=== PATIENT | female | born 1995 | race Caucasian/White ===

== ENCOUNTER 2019-07-06 07:18 | Inpatient (IN) ==
[2019-07-06] MEDS ORDERED: NARCAN IV ONE ×2 (07:34→10:11)
[2019-07-06] MEDS ORDERED: NS 1,000 ML IV ONE ×2 (07:52→09:59)
[2019-07-06] MEDS ORDERED: ZOFRAN IV ONE ×2 (07:52→10:02)
[2019-07-06 08:13] LABS: BASO# 0.01 X1000 (0.0-0.2); BASO% 0.1 % (0.0-0.8); EOS# 0.01 X1000 (0.0-0.7); EOS% 0.1 % (0.0-10.0); HEMATOCRIT 40.4 % (37.0-47.0); HEMOGLOBIN 13.1 g/dL (12.0-16.0); IMM GRAN# 0.15 X1000 (0.0-0.04); IMM GRAN% 0.8 % (0.0-0.5); LYMPH# 1.09 X1000 (1.2-3.4); MCH 30.3 PG (27-31); MCHC 32.4 g/dL (33-37); MCV 93.3 FL (81-99); MONO# 2.77 X1000 (0.11-0.59); MONO% 15.4 % (1.7-9.3); MPV 9.4 FL (7.4-10.4); NEUT# 14.01 X1000 (1.4-6.5); NEUT% 77.6 % (42.2-75.2); PLT 378 X1000 (130-400); RBC 4.33 XMIL (4.2-5.4); RDW 12.5 % (11.5-14.5); WBC 18.04 X1000 (4.8-10.8)
[2019-07-06 08:27] LABS: ALB/GLOB RATIO 1.7; ALBUMIN 4.9 g/dL (3.5-5.0); CALCIUM 8.9 mg/dL (8.8-10.2); CREATININE 1.3 mg/dL (0.5-0.9); POTASSIUM 4.4 mmol/L (3.5-5.1); TOTAL BILIRUBIN 0.29 mg/dL (0.20-1.00); TOTAL PROTEIN 7.8 g/dL (6.3-8.3)
--- NOTE | 2019-07-06 08:28 | Diag Imaging Result Doc PS360 ---
EXAM: CT HEAD W/O CONTRAST HISTORY: hearing loss after Heroin use TECHNIQUE: CT head without contrast COMPARISON: None. FINDINGS: No parenchymal hemorrhage. No epidural or subdural hematoma. No subarachnoid hemorrhage. No mass identified on this noncontrasted exam. No hydrocephalus. No sinus opacification. IMPRESSION: No hemorrhage. Negative brain CT without contrast. This exam was performed using automated exposure control, adjustment of mA or kV according to patient size, and/or use of iterative reconstruction technique. Electronically signed by Nathan Ureña 07/06/2019 8:26 AM
[2019-07-06 09:04] LABS: UR AMPHETAMINES QUAL NONE DETECTED (NONE DETECT); UR BARBITUATES QUAL NONE DETECTED (NONE DETECT); UR BENZODIAZEPIN QUAL NONE DETECTED (NONE DETECT); UR CANNABINOIDS QUAL NONE DETECTED (NONE DETECT); UR COCAINE QUAL NONE DETECTED (NONE DETECT); UR METHADONE QUAL NONE DETECTED (NONE DETECT); UR OPIATES QUAL PRESUMPTIVE POSITIVE (NONE DETECT); UR OXYCODONE QUAL NONE DETECTED (NONE DETECT); UR PCP QUAL NONE DETECTED (NONE DETECT)
--- NOTE | 2019-07-06 09:23 | Diag Imaging Result Doc PS360 ---
EXAM: CHEST-1 VIEW HISTORY: leukocytosis, fever TECHNIQUE: Chest single view COMPARISON: None. FINDINGS: The lungs are well expanded. The heart is not enlarged. The vessels are not distended. There are mild increased markings in the left base behind the heart. No effusion identified. IMPRESSION: Small left basilar infiltrate. Electronically signed by Nathan Ureña 07/06/2019 9:20 AM
[2019-07-06] MEDS ORDERED: VANCOMYCIN 1 GM/NS 1 GM/250 ML IVPB IV ONE (09:25)
[2019-07-06] MEDS ORDERED: ZOSYN 3.375 GM in NS 50 ML IV ONE (09:25)
[2019-07-06] MEDS ORDERED: SOLU-MEDROL IV ONE (10:13)
--- NOTE | 2019-07-06 10:20 | PROVIDER DOCUMENTATION ---
This chart was entered by Missy Trevino Scribe, acting as scribe for Jefferson Somers MD. VOB-[id number]-ZGCP Abuse/Overdose - General Chief Complaint: Intoxicated Stated Complaint: POSSIBLE OD Time Seen by Provider: 07/06/19 07:24 Source: patient, EMS Allergies/Adverse Reactions: Allergies Allergy/AdvReac Type Severity Reaction Status Date / Time No Known Allergies Allergy Verified 07/06/19 07:32 Home Medications: Home Medication List Medication Instructions Recorded Confirmed Last Taken Type NK [No Home Medications] 09/13/17 07/06/19 Unknown History - History of Present Illness-Drug/Alcohol Nature of Presenting Problem: 23yof presents to ED by EMS cc drug overdose. EMS reports family told them they last saw pt at 12am and she was fine but at 6am found her unresponsive, barely breathing. EMS reports when they got to pt home it looked as if she had been using Heroin, they did not give Narcan in route b/c pt was A&Ox3. Upon exam in ED pt is A&oX3, denies injury but does report hearing loss and pt temp is 93. Pt has hx of drug use but states being clean for 1yr prior to today. This episode of drinking or use began:: unsure Severity: reports: severe Psychiatric Complaints: reports: denies symptoms Associated Symptoms: reports: EENT symptoms (trouble hearing) Any injuries associated with this episode of intoxication?: No Similar Symptoms Previously?: Yes Recently seen or treated by another doctor?: No Review of Systems - Adult - REVIEW OF SYSTEMS - ADULT Constitutional: reports: see HPI, other (drug overdose). denies: chills, fever, fatique Eyes: reports: no symptoms reported Ears, Nose, Mouth & Throat: reports: see HPI, hearing loss Cardiovascular: reports: no symptoms reported Respiratory: reports: no symptoms reported Gastrointestinal: reports: no symptoms reported Genitourinary: reports: no symptoms reported Musculoskeletal: reports: no symptoms reported Integumentary: reports: no symptoms reported Neurological: reports: no symptoms reported Psychiatric: reports: no symptoms reported Endocrine: reports: no symptoms reported Hematologic/Lymphatic: reports: no symptoms reported Allergic/Immunologic: reports: no symptoms reported All Other Systems: Reviewed and Negative Past History - Adult - PAST MEDICAL HISTORY-ADULT Review of Records: reports: Nursing Assessment Review, Medications Reviewed, Social history reviewed & non-contributory. Major Childhood Illnesses: reports: denies history Cardiovascular: reports: denies history Respiratory: reports: denies history Gastrointestinal: reports: denies history Obstetrical/Gynecological: reports: denies history Genitourinary: reports: denies history Musculoskeletal: reports: denies history Neurological: reports: denies history Endocrine/Immune: reports: denies history Other Conditions: reports: denies history - PRIOR SURGERIES/PROCEDURES Surgical/Procedure History: reports: none - IMMUNIZATION STATUS Childhood Immunizations: See Nurse Assessment Flu Vaccine: See Nurse Assessment - FAMILY HISTORY Family History: reviewed, not pertinent - SOCIAL HISTORY Smoking: cigarettes, less than 1 pack/day Provider spent 3-5 mins advising pt. on dangers of tobacco.: Discussed manners to quit use, and f/u contacts for add'l counseling. Physical Exam-General - PHYSICAL EXAM-ADULT Initial Vital Signs Reviewed: Yes - CONSTITUTIONAL General Appearance: alert. negative: anxious, combative - EYES Eyes: PERRL/EOMI, pink conjunctivae. negative: photophobia - HEAD, EARS, NOSE, MOUTH & THROAT HENMT: normocephalic/atraumatic, moist mucous membranes, hearing deficit. negative: angioedema - NECK Neck: normal inspection - RESPIRATORY Respiratory: chest non-tender, lungs clear, normal breath sounds. negative: wheezing - CARDIOVASCULAR Cardiovascular: normal peripheral pulses, no edema, tachycardia. negative: regular rate, rhythm, bradycardia - GASTROINTESTINAL (ABDOMEN) Abdominal Exam: normal bowel sounds, non tender, soft. negative: rebound - MUSCULOSKELETAL Back Exam: normal inspection, no CVA tenderness, no vertebral tenderness Extremity: normal inspection, normal capillary refill. negative: deformity - SKIN Integumentary: normal color. negative: diaphoresis, jaundice - PSYCHIATRIC Psych/Mental Status: oriented x 3. negative: anxious, disheveled Progress - PLAN OF CARE/RESULTS Progress/Plan/Lab Results: Vital Signs - 8 hr 07/06/19 07:31 07/06/19 07:38 07/06/19 07:45 Temperature Pulse Rate 112 H 110 H 114 H Respiratory Rate 8 L 10 L 11 L Blood Pressure 112/74 O2 Sat by Pulse Oximetry 99 97 95 07/06/19 08:00 07/06/19 08:04 07/06/19 08:23 Temperature Pulse Rate 116 H 121 H 112 H Respiratory Rate 10 L 13 10 L Blood Pressure 115/83 O2 Sat by Pulse Oximetry 96 98 100 07/06/19 08:25 07/06/19 08:30 07/06/19 08:31 Temperature 93.9 F L Pulse Rate 111 H 112 H Respiratory Rate 14 12 Blood Pressure 92/62 O2 Sat by Pulse Oximetry 98 98 07/06/19 08:45 07/06/19 09:00 07/06/19 09:01 Temperature Pulse Rate 112 H 120 H 108 H Respiratory Rate 7 L 9 L 10 L Blood Pressure 85/63 O2 Sat by Pulse Oximetry 97 96 94 L 07/06/19 09:15 07/06/19 09:30 07/06/19 09:31 Temperature Pulse Rate 108 H 111 H 110 H Respiratory Rate 12 17 21 Blood Pressure 81/62 O2 Sat by Pulse Oximetry 94 L 95 07/06/19 09:45 07/06/19 10:00 07/06/19 10:15 Temperature 97.5 F L Pulse Rate 106 H 106 H 108 H Respiratory Rate 9 L 12 16 Blood Pressure 90/50 O2 Sat by Pulse Oximetry 95 97 07/06/19 10:21 07/06/19 10:30 07/06/19 10:31 Temperature Pulse Rate 112 H 116 H 111 H Respiratory Rate 12 13 14 Blood Pressure 86/61 90/63 O2 Sat by Pulse Oximetry 98 99 98 07/06/19 10:45 07/06/19 11:00 07/06/19 11:01 Temperature Pulse Rate 106 H 101 H 103 H Respiratory Rate 13 12 14 Blood Pressure 94/65 O2 Sat by Pulse Oximetry 100 100 100 07/06/19 11:15 07/06/19 11:30 07/06/19 11:31 Temperature Pulse Rate 103 H 105 H 100 H Respiratory Rate 13 12 11 L Blood Pressure 101/58 O2 Sat by Pulse Oximetry 100 100 99 07/06/19 11:45 07/06/19 12:06 Temperature 97.7 F Pulse Rate 100 H Respiratory Rate 11 L Blood Pressure O2 Sat by Pulse Oximetry 100 Bedside Urine ED: Urine Bedside Start: 07/06/19 07:24 Freq: ORDERED Status: Active Protocol: Activity Type Activity Date Activity User E-Sign Co-Sign Detail Recorded Client Recorded Date Recorded By Document 07/06/19 08:08 [id number] 07/06/19 08:08 [id number] 07/06/19 08:08 Point of Care [Bedside Point of Care] -Lot # [id number] - Results Negative -Control Line Visible? Yes Laboratory Results - last 24 hr 07/06/19 07/06/19 07/06/19 07:45 07:45 07:45 WBC 18.04 H RBC 4.33 Hgb 13.1 Hct 40.4 MCV 93.3 MCH 30.3 MCHC 32.4 L RDW Std Deviation 12.5 Plt Count 378 MPV 9.4 Immature Gran % (Auto) 0.8 H Neut % (Auto) 77.6 H Lymph % (Auto) 6.0 L Stanton % (Auto) 15.4 H Eos % (Auto) 0.1 Baso % (Auto) 0.1 Immature Gran # (Auto) 0.15 H Neut # (Auto) 14.01 H Lymph # (Auto) 1.09 L Stanton # (Auto) 2.77 H Eos # (Auto) 0.01 Baso # (Auto) 0.01 PT INR PTT (Actin FS) Sodium 139 Potassium 4.4 Chloride 96 L Carbon Dioxide 23 L Anion Gap 20 BUN 16 Creatinine 1.3 H Estimated GFR/1.73 m2 50 BUN/Creatinine Ratio 12 Glucose 105 H POC Glucose Calculated Osmolality 279 Calcium 8.9 Total Bilirubin 0.29 AST 48 H ALT 40 H Alkaline Phosphatase 63 Creatine Kinase 719 H Creatine Kinase Index 3.2 H CK-MB (CK-2) 22.98 H Troponin T Total Protein 7.8 Albumin 4.9 Globulin 2.9 Albumin/Globulin Ratio 1.7 Plasma Lactate Urine Opiates Screen Ur Oxycodone Screen Ur Methadone, Qual Ur Barbiturates Screen Ur Phencyclidine Scrn Ur Amphetamines Screen U Benzodiazepines Scrn Urine Cocaine Screen U Cannabinoids Screen 07/06/19 07/06/19 07/06/19 07:45 07:45 07:53 WBC RBC Hgb Hct MCV MCH MCHC RDW Std Deviation Plt Count MPV Immature Gran % (Auto) Neut % (Auto) Lymph % (Auto) Stanton % (Auto) Eos % (Auto) Baso % (Auto) Immature Gran # (Auto) Neut # (Auto) Lymph # (Auto) Stanton # (Auto) Eos # (Auto) Baso # (Auto) PT 13.6 INR 1.03 PTT (Actin FS) 31.5 Sodium Potassium Chloride Carbon Dioxide Anion Gap BUN Creatinine Estimated GFR/1.73 m2 BUN/Creatinine Ratio Glucose POC Glucose 85 Calculated Osmolality Calcium Total Bilirubin AST ALT Alkaline Phosphatase Creatine Kinase Creatine Kinase Index CK-MB (CK-2) Troponin T 0.057 Total Protein Albumin Globulin Albumin/Globulin Ratio Plasma Lactate Urine Opiates Screen Ur Oxycodone Screen Ur Methadone, Qual Ur Barbiturates Screen Ur Phencyclidine Scrn Ur Amphetamines Screen U Benzodiazepines Scrn Urine Cocaine Screen U Cannabinoids Screen 07/06/19 07/06/19 07/06/19 08:02 09:45 12:00 WBC RBC Hgb Hct MCV MCH MCHC RDW Std Deviation Plt Count MPV Immature Gran % (Auto) Neut % (Auto) Lymph % (Auto) Stanton % (Auto) Eos % (Auto) Baso % (Auto) Immature Gran # (Auto) Neut # (Auto) Lymph # (Auto) Stanton # (Auto) Eos # (Auto) Baso # (Auto) PT INR PTT (Actin FS) Sodium Potassium Chloride Carbon Dioxide Anion Gap BUN Creatinine Estimated GFR/1.73 m2 BUN/Creatinine Ratio Glucose POC Glucose 72 Calculated Osmolality Calcium Total Bilirubin AST ALT Alkaline Phosphatase Creatine Kinase Creatine Kinase Index CK-MB (CK-2) Troponin T Total Protein Albumin Globulin Albumin/Globulin Ratio Plasma Lactate 2.3 H Urine Opiates Screen PRESUMPTIVE POSITIVE A Ur Oxycodone Screen NONE DETECTED Ur Methadone, Qual NONE DETECTED Ur Barbiturates Screen NONE DETECTED Ur Phencyclidine Scrn NONE DETECTED Ur Amphetamines Screen NONE DETECTED U Benzodiazepines Scrn NONE DETECTED Urine Cocaine Screen NONE DETECTED U Cannabinoids Screen NONE DETECTED Orders Category Date Time Status Admit - [facility] Routine [id number] 07/06/19 12:18 Active Activity - Bed Rest with BRP ORDERED Care 07/06/19 12:18 Active Cardiac Monitoring DIRECTED Care 07/06/19 11:33 Active ED: Urine Bedside ORDERED Care 07/06/19 07:24 Active FSBS [Finger Stick Blood Sugar (ED)] DIRECTED Care 07/06/19 07:52 Completed IV Insertion ORDERED Care 07/06/19 11:33 Completed Intake and Output-Strict ORDERED Care 07/06/19 12:18 Active Notify MD of + Sepsis Screen NOW Care 07/06/19 11:33 Active Nursing- MD Consult Request ROUTINE Care 07/06/19 12:22 Active Nursing- Obtain EKG ONCE Care 07/06/19 07:24 Active Vital Signs Order Q1H Care 07/06/19 12:18 Active Z-Document. for Tele Applied ORDERED Care 07/06/19 12:19 Active Physician/Provider Consults Routine Cons 07/06/19 12:18 Ordered Regular Diet Diet 07/06/19 09:[address] HEAD W/O CONTRAST [CT] Stat Exams 07/06/19 07:35 Completed cxr [CHEST-1 VIEW] [RAD] Stat Exams 07/06/19 08:43 Completed BLOOD CULTURE [BLDCUL] Stat Lab 07/06/19 09:56 Results CBC WITH DIFF [HEME] Routine Lab 07/07/19 06:00 Ordered CBC WITH ELECTRONIC DIFF [HEME] Stat Lab 07/06/19 07:45 Completed CK PROFILE [SP CHEM] Routine Lab 07/07/19 06:00 Ordered CK PROFILE [SP CHEM] Stat Lab 07/06/19 07:45 Completed CK TOTAL [CHEM] Stat Lab 07/06/19 13:21 Ordered COMPREHENSIVE METABOLIC PANEL [CHEM] Routine Lab 07/07/19 06:00 Ordered COMPREHENSIVE METABOLIC PANEL [CHEM] Stat Lab 07/06/19 07:45 Completed LACTATE, PLASMA [CHEM] Lab 07/06/19 13:21 Ordered LACTATE, PLASMA [CHEM] Lab 07/06/19 15:30 Uncollected LACTATE, PLASMA [CHEM] Stat Lab 07/06/19 09:45 Completed PROTIME WITH INR [COAG] Stat Lab 07/06/19 07:45 Completed PTT [COAG] Stat Lab 07/06/19 07:45 Completed RENAL PROFILE [CHEM] Stat Lab 07/06/19 13:21 Ordered SPUTUM CULTURE WITH GRAM STAIN [RM] Routine Lab 07/06/19 12:21 Uncollected TROPONIN T Stat Lab 07/06/19 07:45 Completed URINE DRUG SCREEN Stat Lab 07/06/19 08:02 Completed 0.9% Sodium Chloride Inj [Ns] 1,000 ml Med 07/06/19 12:30 Active IV 100 mls/hr 0.9% Sodium Chloride Inj [Ns] 1,000 ml Med 07/06/19 07:52 Discontinued IV 999 mls/hr 0.9% Sodium Chloride Inj [Ns] 1,000 ml Med 07/06/19 09:59 Discontinued IV 999 mls/hr Linezolid 600 mg/D5w [Zyvox 600 mg/D5w] Med 07/06/19 12:30 Active 600 mg in 300 ml IV Q12H Methylprednisolone Sod Succ [Solu-Medrol] Med 07/06/19 10:13 Discontinued 125 mg IV NOW ONE Methylprednisolone Sod Succ [Solu-Medrol] Med 07/06/19 21:00 Active 40 mg IV Q12H Naloxone [Narcan] Med 07/06/19 07:34 Discontinued 0.4 mg IV NOW ONE Naloxone [Narcan] Med 07/06/19 10:11 Discontinued 0.4 mg IV NOW ONE Ondansetron [Zofran] Med 07/06/19 07:52 Discontinued 4 mg IV NOW ONE Ondansetron [Zofran] Med 07/06/19 10:02 Discontinued 4 mg IV NOW ONE Ondansetron [Zofran] Med 07/06/19 12:18 Active 4 mg IV Q4H PRN PRN Pantoprazole [Protonix] Med 07/06/19 12:30 Active 40 mg IV Q24H Piperacillin/Tazobactam [Zosyn] 3.375 gm Med 07/06/19 09:25 Discontinued 0.9% Sodium Chloride Inj [Ns] 50 ml IV NOW Piperacillin/Tazobactam [Zosyn] 3.375 gm Med 07/06/19 16:00 Active 0.9% Sodium Chloride Inj [Ns] 50 ml IV Q6H Sodium Chloride 0.9% Med 07/06/19 12:30 Active 10 ml INJ DIRECTED Vancomycin 1 gm/Ns Med 07/06/19 09:25 Discontinued 1 gm in 250 ml IV NOW Oxygen Device Stat Oth 07/06/19 11:33 Completed Telemetry [OM.EQ] Routine Oth 07/06/19 12:18 Active EKG [EKG] Stat Ther 07/06/19 07:24 Draft Transfer/Admit Order [TRANSFER] Routine Transfer 07/06/19 12:26 Ordered Result Diagrams: 07/06/19 07:45 07/06/19 07:45 - REASSESSMENT Reassessment #1 Time Reassessed: 09:45 Status: improving (hearing is improving after Narcan and pt is now c/o left shoulder pain) - EKG 1 Time of EKG reading by physician:: 07:41 EKG Read and Signed by:: Jefferson Somers EKG Interpretation (*Must complete 3 of following elements*): Abnormal (indeterminate axis;) Rate: 111 Rhythm: Sinus Tachy QRS: other (Abnormal, consider primary T wave abnormality) [place] Interval: normal 2 Time of EKG reading by physician:: 13:42 EKG Read and Signed by:: Jefferson Somers EKG Interpretation (*Must complete 3 of following elements*): Normal Rate: 94 Rhythm: NSR QRS: normal ST Wave: normal Prior EKG Comparison: changes noted - XRAY 1 XRAY: Bilateral XRAY Study: Chest Impression: See EMR Report ( IMPRESSION: Small left basilar infiltrate. Electronically signed by Nathan Ureña 07/06/2019 9:20 AM) - CT/MRI 1 CT Study: Head Impression: See EMR Report (IMPRESSION: No hemorrhage. Negative brain CT without contrast. This exam was performed using automated exposure control, adjustment of mA or kV according to patient size, and/or use of iterative reconstruction technique. Electronically signed by Nathan Ureña 07/06/2019 8:26 AM) - CONSULTS/PCP/HOSPITALIST Notification #1 *Consult/PCP/Hospitalist*: Saar MARX for hospitalist Time Discussed: 10:00 Consult Disposition: Will see in ED, Admit #2 Consult: Dr Quintero for ENT Time Discussed: 11:34 Consult Disposition: other (Advised to keep pt at [facility] and will follow.) Departure - Departure Date of Disposition Decision: 07/06/19 Time of Disposition Decision: 10:06 DIAGNOSIS: Heroin overdose, Sensorineural hearing loss, bilateral, Aspiration pneumonia, Renal insufficiency, Sepsis Disposition: ADMITTED INPATIENT 09 Certified Medical Emergency: Emergent Condition: Fair Additional Instructions: ED Follow Up Instructions: You have been treated by a care provider in the Emergency Department. These instructions are being provided to you so you can have an understanding of how to care for yourself upon discharge. Upon discharge from the Emergency Department, you are responsible for making arrangements for follow-up care by a physician of your choice. Take all prescribed medications as directed. Return to the Emergency Department immediately for any new or worsening symptoms. You may call the Physician Referral phone number at [phone] to obtain a list of Physicians who are taking new patients. Referrals and Follow-Ups: None,PCP [Primary Care Provider] - Discharge Education: Steps to Quit Smoking, [id number] - Critical Care Note This patient required my direct & personal management of CC.: Yes Total Time (mins): 60 Critical Care Statement: This patient required my direct personal management to treat or rule out processes, the absence of which, could potentiallly result in sudden, clinically significant life or limb threatening deterioration. Attestation - Physician/ TIRSO Attestation Patient care was provided by Advanced Practice Provider:: No The physician spent face to face time with patient:: Yes Advanced Practice Provider documentation review:: Supervising physician onsite and consulted in the evaluation and care of this patient. The physician did have a face to face encounter with the patient. Sepsis: Tissue Perfusion Assmt - Physical Exam Assessment Date: 07/06/19 Time Assessment Initialized: 10:46 Vital Signs: Last Vital Signs Temp 97.7 F 07/06/19 12:06 Pulse 100 H 07/06/19 11:45 Resp 11 L 07/06/19 11:45 BP 101/58 07/06/19 11:31 Pulse Ox 100 07/06/19 11:45 Height 5 ft 4 in Weight 145 lb 07/06/19 10:46 see chart Lung Sounds:: lungs clear Heart Sounds:: Regular Capillary Refill Time: Less Than 2 Seconds Peripheral Pulse Evaluation:: radial (R): 4+, radial (L): 4+, dorsalis-pedis (R): 4+, dorsalis-pedis (L): 4+ Skin Exam:: flushed, turgor good - Impression Impression:: Tissue Perfusion Adequate - Plan Plan:: See Orders This chart was documented by the indicated scribe, (Missy Trevino Scribe) and accurately reflects the services I performed and decisions made by me, Jefferson Somers MD, as attested by the provider's signature.
--- NOTE | 2019-07-06 11:31 | EKG Report ---
Test Performed on : 07/06/2019 07:41:50 AM Test Reason : ams Blood Pressure : / mmHG Vent. Rate : 111 BPM Atrial Rate : 111 BPM P-R Int : 124 ms QRS Dur : 072 ms QT Int : 324 ms P-R-T Axes : 000 106 -24 degrees QTc Int : 440 ms Sinus tachycardia. Indeterminate axis Abnormal QRS-T angle, consider primary T wave abnormality Abnormal ECG No previous ECGs available Unconfirmed Result
[2019-07-06 12:12] LABS: INR 1.03; PROTIME 13.6 Seconds (11.0-16.0)
[2019-07-06 12:13] LABS: PTT 31.5 Seconds (22.3-41.8)
[2019-07-06] MEDS ORDERED: ZOFRAN IV PRN (12:18)
[2019-07-06 12:36] LABS: CK INDEX 3.2 (0.0-2.5); CK-MB 22.98 ng/mL (0.0-5.0)
--- NOTE | 2019-07-06 13:05 | HISTORY AND PHYSICAL ---
CHIEF COMPLAINT: Heroin overdose. HISTORY OF PRESENT ILLNESS: This is a 23-year-old female with a prior history of IV heroin use, who reportedly per the family has been clean for 1 year. They stated that she had been acting fine and had been in her normal state of health and she went to bed about midnight. The parents state they last saw her at midnight. At 6 o'clock this morning, they found her unresponsive, barely breathing. EMS was called. On arrival to the emergency room, she was awake. She would doze off to sleep when left alone. She complained of not being able to hear out of either ear. She was given Narcan 0.4 on arrival at 7:35 and this was repeated at 10 o'clock. She has required none since. The parents are unaware of her using heroin prior to this episode during this last year. PAST MEDICAL HISTORY: Denies. PAST SURGICAL HISTORY: Denies. SOCIAL HISTORY: She smokes about 1 pack a day. She does use heroin. She denies any alcohol or other illicit drug use. ALLERGIES: No known drug allergies. HOME MEDICATIONS: None. REVIEW OF SYSTEMS: Discussed with the patient with pertinent positives stated in the HPI. She denied any syncope, dizziness, any chest pain, palpitations, any cough, fevers or chills, night sweats, any diarrhea, constipation, black or bloody vomitus or stools, any hematuria, dysuria, frequency, urgency. PHYSICAL EXAMINATION: GENERAL: This is a 23-year-old female who is sitting up on the stretcher in the emergency room, in no distress. VITAL SIGNS: Blood pressure is 94/65 with a heart rate of 103, respirations are 16, temperature is 97.7 degrees. Of note, temperature was 93.9 degrees on arrival with O2 saturations 99% to 100%. EYES: Pupils are equal, round, react to light. EOMs are intact. Sclerae are anicteric. HEENT: Head is normocephalic, atraumatic. Mucous membranes are moist. She does state that she is unable to hear. NECK: Supple with trachea midline. CARDIOVASCULAR: Regular rate and rhythm. S1 and S2 appreciated. She has no lower extremity edema. Calves are nontender bilaterally with peripheral pulses palpable x4 extremities. PULMONARY: Breath sounds are clear with no increased work of breathing noted. Chest rises and falls symmetric with respiration. Chest wall is nontender to palpation. GASTROINTESTINAL: Abdomen is soft, nontender, nondistended. Bowel sounds in all 4 quadrants. SKIN: Warm and dry. NEUROLOGIC: She is alert oriented x3. LABS: WBC is 18 with hemoglobin 13.1, hematocrit 40.4, platelets of 378,000. Sodium 139, potassium 4.4, BUN 16, creatinine 1.3, with a glucose of 105. AST is 48, ALT 40, with total CPK 719. Lactate is 2.3. Urine drug screen is presumptive positive for opiates. Chest x-ray reveals small left basilar infiltrate. CT of the head reveals no hemorrhage. Negative brain CT without contrast. ASSESSMENT AND PLAN: 1. Heroin overdose. We are unsure how long the patient was down. She has required no further Narcan since 10:30 this morning. We will continue to monitor. 2. Aspiration pneumonia. Blood cultures have been obtained. She was given vancomycin and Zosyn in the emergency room. We will not continue the vancomycin as she is having decreased hearing. We will use Zyvox and Zosyn, and further antibiotics will be culture driven. 3. Sensorineural hearing loss. The parents state the patient has had no difficulty with hearing up to this episode. During my exam, the patient stated that she was able to hear "a word every now and then," as this is possible after heroin overdose. We had the ER physician call Dr. Bryant who is on-call for ENT. Dr. Somers did discuss this with Dr. Bryant. Dr. Bryant felt that the patient did not need to be transferred to a higher level facility and that she could be taken care of here with continuing steroids and he would follow. We have consulted Dr. Bryant. She was given 125 of Solu-Medrol in the emergency room. We will give 40 of Solu- Medrol IV twice daily and we will monitor. 4. Acute kidney injury. We will continue with intravenous hydration, renal dose medications, and recheck labs in the morning. 5. Sepsis, most likely secondary to aspiration pneumonia. Although she did use intravenous drugs, blood cultures are pending. We will continue with antibiotics as stated above. 6. Hypotension. Blood pressures have been in the 80s to 90s. We will place her in PVC and continue with IV hydration and start pressors as needed. 7. Nausea, vomiting. We will give Zofran and continue with hydration. 8. Rhabdomyolysis. We will trend CPK and kidney function and follow. 9. For deep vein thrombosis prophylaxis, we will use Lovenox; and gastrointestinal prophylaxis, Protonix. Plan was discussed with Dr. Tinajero. Further treatments pending hospital course. Dictated by JAYSHREE Knutson for Ten Ayala MD cc: JAYSHREE Knutson MD
[2019-07-06] MEDS: PROTONIX IV SCH (13:25)
[2019-07-06] MEDS: SODIUM CHLORIDE 0.9% INJ SCH (13:25)
[2019-07-06] MEDS: ZYVOX 600 MG/D5W 600 MG/300 ML IVPB IV SCH (13:25)
[2019-07-06] MEDS: NS 1,000 ML IV SCH (13:25)
--- NOTE | 2019-07-06 15:05 | HISTORY AND PHYSICAL ---
ADDENDUM: The patient seen and examined by me [id number]. All the laboratory, vital signs and images were reviewed. Chest x-ray showed the possibility of bilateral lower lobe pneumonia/infiltrate. She does have elevated white blood cell count, as well as acute kidney injury with elevated CK level and elevated AST, ALT probably due to dehydration. As per the patient, she had heroin through her veins yesterday, and she does not remember anything else afterwards. On top of that, she had decreased hearing bilaterally. 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 We have placed this patient on steroids for that, and also we have requested an evaluation by the ENT doctor. It looks like the ER doctor also contacted the ENT doctor today. On my physical exam, she seems to be feeling better, but she is still complaining of some hearing loss. She is recovering though. She is completely awake, alert and oriented x3. Vital signs are stable, except that she is having some mild tachycardia. Blood pressure has been borderline low; the lowest reported is 81/62, but she is responding to fluids. She will be placed in the PVC unit. Apparently, she is in a rehab center and she had a 48-hour time to visit the family and stay with them I believe for the holidays. Since she had a heroin shot through her vein, we have requested a blood culture. We will wait for that; it usually takes 48 hours. She does have also rhabdomyolysis and acute kidney injury. She will be placed on IV fluids, steroids, Protonix, Zofran, and we are going to cover her with broad-spectrum antibiotics for the infiltrate that she has in her lungs, since her white blood cell count is elevated as well. She meets criteria for sepsis. I agree with the rest of the nurse practitioner's assessment and plan. cc: Ten Ayala MD
[2019-07-06] MEDS: ZOSYN 3.375 GM in NS 50 ML IV SCH ×2 (16:50→21:54)
[2019-07-06 16:59] LABS: AGAP 15; ALBUMIN 3.7 g/dL (3.5-5.0); BUN 13 mg/dL (8-22); CALCIUM 8.3 mg/dL (8.8-10.2); CHLORIDE 102 mmol/L (98-107); COSMO 278; CREATININE 0.8 mg/dL (0.5-0.9); ESTIMATED GFR > 60; GLUCOSE 172 mg/dL (70-104); PHOSPHORUS 3.3 mg/dL (2.7-4.5); POTASSIUM 4.7 mmol/L (3.5-5.1); SODIUM 137 mmol/L (136-145); TCO2 20 mmol/L (25-35)
[2019-07-06 17:11] LABS: CK TOTAL 6014 U/L (24-173)
[2019-07-06] MEDS: SOLU-MEDROL IV SCH (21:55)
[2019-07-07] MEDS: NS 1,000 ML IV SCH ×4 (00:23→17:46)
[2019-07-07] MEDS: ZYVOX 600 MG/D5W 600 MG/300 ML IVPB IV SCH ×2 (00:26→13:15)
[2019-07-07] MEDS: ZOSYN 3.375 GM in NS 50 ML IV SCH ×4 (04:22→22:34)
[2019-07-07 05:59] LABS: HEMOGLOBIN 11.2 g/dL (12.0-16.0); IMM GRAN# 0.03 X1000 (0.0-0.04); IMM GRAN% 0.2 % (0.0-0.5); LYMPH% 7.5 % (20.5-51.1); MCH 30.2 PG (27-31); MCHC 32.9 g/dL (33-37); MCV 91.6 FL (81-99); MONO# 1.27 X1000 (0.11-0.59); MONO% 7.3 % (1.7-9.3); MPV 9.9 FL (7.4-10.4); NEUT# 14.81 X1000 (1.4-6.5); PLT 261 X1000 (130-400); RBC 3.71 XMIL (4.2-5.4); RDW 12.3 % (11.5-14.5); WBC 17.41 X1000 (4.8-10.8)
[2019-07-07 06:52] LABS: AGAP 10; ALB/GLOB RATIO 1.6; ALBUMIN 3.5 g/dL (3.5-5.0); ALKALINE PHOSPHATASE 40 U/L (32-104); BUN 11 mg/dL (8-22); CALCIUM 8.4 mg/dL (8.8-10.2); CHLORIDE 106 mmol/L (98-107); CK PROFILE 5028 U/L (24-173); COSMO 279; CREATININE 0.8 mg/dL (0.5-0.9); ESTIMATED GFR > 60; GLUCOSE 144 mg/dL (70-104); GOT 124 U/L (10-30); GPT 60 U/L (10-36); POTASSIUM 4.4 mmol/L (3.5-5.1); SODIUM 139 mmol/L (136-145); TCO2 23 mmol/L (25-35); TOTAL BILIRUBIN 0.25 mg/dL (0.20-1.00); TOTAL PROTEIN 5.7 g/dL (6.3-8.3)
[2019-07-07 07:09] LABS: CK INDEX 1.9 (0.0-2.5); CK-MB 97.57 ng/mL (0.0-5.0)
--- NOTE | 2019-07-07 08:02 | EKG Report ---
Test Performed on : 07/06/2019 1:42:03 PM Test Reason : ED. No order in [place] Blood Pressure : / mmHG Vent. Rate : 094 BPM Atrial Rate : 094 BPM P-R Int : 128 ms QRS Dur : 062 ms QT Int : 348 ms P-R-T Axes : 065 043 029 degrees QTc Int : 435 ms Normal sinus rhythm. Normal ECG When compared with ECG of 06-JUL-2019 07:41, (Unconfirmed) QRS axis shifted left Nonspecific T wave abnormality has replaced inverted T waves in Inferior leads Unconfirmed Result
[2019-07-07] MEDS: SOLU-MEDROL IV SCH ×2 (09:01→20:49)
--- NOTE | 2019-07-07 09:46 | PROGRESS NOTE ---
DATE: 07/07/2019 SUBJECTIVE: The patient seems to be feeling better today. She still has some ringing sensation at the level of the ears, but compared with yesterday is better and she is able to listen better as well. Pending ENT evaluation and recommendations, for now we will continue with steroids. OBJECTIVE: Vital Signs: Temperature 98.1 degrees, pulse 86, respiratory rate 16, blood pressure 92/67 oxygen saturation 99 on room air. HEENT: Head normocephalic, no trauma, PERRLA. Neck: Supple. No JVD. No masses. Central trachea. Chest: Clear to auscultation. No wheezing. No rales. Abdomen: Soft, nontender, nondistended. No hepatosplenomegaly. Extremities: No edema no clubbing no cyanosis. Neurological: The patient is alert. She is oriented x3. No focal deficits. As per the patient some decrease of hearing. LABORATORY: WBC 17.4, hemoglobin 11.2, hematocrit 34, platelets 261. Sodium 139, potassium 4.4, chloride 106, bicarbonate 23, BUN 11, creatinine 0.8, glucose 144, calcium 7.4, AST 124, ALT 60. Alkaline phosphatase 40. CK level 5028. ASSESSMENT AND PLAN: 1. Heroin overdose, they gave her a dose of Narcan yesterday and she started to respond after that, will we are going to continue to monitor this patient. She is not having any signs or symptoms of withdrawal. 2. Likely aspiration pneumonia. She has been placed on Zyvox and Zosyn. I will continue for now with Zyvox and Zosyn. Tomorrow I will get a new chest x-ray. I will check the blood cultures. If those are negative, probably I will switch the treatment to p.o. and stop the IV. 3. Rhabdomyolysis. This is getting better. Continue with IV fluids. 4. 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 ENT has been consulted. 5. Acute kidney injury resolved. 6. Sepsis likely due to pneumonia, blood culture has been negative so far. This patient meets criteria for sepsis with leukocytosis, low blood pressure and tachycardia and a source of infection. 7. Nausea and vomiting, resolved. 8. Hypotension. Continue with the same management. She is still having borderline low blood pressure. cc: Ten Ayala MD
[2019-07-07] MEDS: PROTONIX IV SCH (13:16)
[2019-07-07] MEDS: SODIUM CHLORIDE 0.9% INJ SCH (13:16)
[2019-07-08] MEDS: ZYVOX 600 MG/D5W 600 MG/300 ML IVPB IV SCH (00:01)
[2019-07-08] MEDS: NS 1,000 ML IV SCH ×3 (02:37→22:30)
[2019-07-08] MEDS: ZOSYN 3.375 GM in NS 50 ML IV SCH (04:00)
[2019-07-08 06:43] LABS: HEMATOCRIT 32.8 % (37.0-47.0); HEMOGLOBIN 10.3 g/dL (12.0-16.0); IMM GRAN# 0.02 X1000 (0.0-0.04); IMM GRAN% 0.1 % (0.0-0.5); LYMPH# 1.36 X1000 (1.2-3.4); LYMPH% 9.7 % (20.5-51.1); MCH 29.6 PG (27-31); MCHC 31.4 g/dL (33-37); MCV 94.3 FL (81-99); MONO# 0.84 X1000 (0.11-0.59); MPV 10.1 FL (7.4-10.4); NEUT# 11.82 X1000 (1.4-6.5); NEUT% 84.2 % (42.2-75.2); PLT 270 X1000 (130-400); RBC 3.48 XMIL (4.2-5.4); RDW 12.7 % (11.5-14.5); WBC 14.04 X1000 (4.8-10.8)
[2019-07-08 07:14] LABS: AGAP 11; ALB/GLOB RATIO 1.5; ALBUMIN 3.5 g/dL (3.5-5.0); ALKALINE PHOSPHATASE 37 U/L (32-104); BUN 10 mg/dL (8-22); CALCIUM 8.8 mg/dL (8.8-10.2); CHLORIDE 107 mmol/L (98-107); COSMO 286; CREATININE 0.8 mg/dL (0.5-0.9); ESTIMATED GFR > 60; GLUCOSE 127 mg/dL (70-104); GOT 111 U/L (10-30); GPT 64 U/L (10-36); POTASSIUM 4.3 mmol/L (3.5-5.1); SODIUM 143 mmol/L (136-145); TCO2 25 mmol/L (25-35); TOTAL BILIRUBIN 0.31 mg/dL (0.20-1.00); TOTAL PROTEIN 5.8 g/dL (6.3-8.3)
[2019-07-08 07:32] LABS: CK PROFILE 3080 U/L (24-173)
[2019-07-08 08:03] LABS: CK INDEX 0.8 (0.0-2.5); CK-MB 23.85 ng/mL (0.0-5.0)
--- NOTE | 2019-07-08 08:18 | Diag Imaging Result Doc PS360 ---
EXAM: CHEST-PORTABLE - 07/08/2019 HISTORY: dyspnea TECHNIQUE: Portable chest COMPARISON: 07/06/2019 FINDINGS: Heart size is normal. Inspiration is deeper compared to prior. There is mild prominence of infrahilar markings on the left. There is a possible tiny right pleural effusion. There is no dense consolidation or pneumothorax identified. IMPRESSION: Apparent mild infrahilar infiltrate on the left. Possible tiny right pleural effusion. Electronically signed by Moustapha Morrison 07/08/2019 8:16 AM
[2019-07-08] MEDS: LEVAQUIN PO SCH (08:56)
[2019-07-08] MEDS: SOLU-MEDROL IV SCH (08:56)
[2019-07-08] MEDS: PREDNISONE PO SCH ×2 (09:10→20:43)
--- NOTE | 2019-07-08 09:21 | PROGRESS NOTE ---
DATE: 07/08/2019 SUBJECTIVE: This patient is feeling better. She is not having any ringing sensation at the level of the ear and she is listening better as per the patient. She believes is back to her baseline. I will stop the IV steroids and I will put her on p.o. steroids twice a day still. On the other hand, I did a chest x-ray today looks good. I will stop the IV treatment and I will put her on p.o. antibiotics. Her white blood cell count is decreasing from 18 to 14, and the CK level is trending down, today is 3000. I will stop the PPIs as well. OBJECTIVE: Vital Signs: Temperature 97.9 degrees, pulse 59, respiratory rate 17, blood pressure 105/66, oxygen saturation 100% on room air. HEENT: Head normocephalic, no trauma. PERRLA. Neck: Supple. No JVD. No masses. Central trachea. Chest: Clear to auscultation. No wheezing. No rales. Abdomen: Soft, nontender, nondistended. No hepatosplenomegaly. Extremities: No edema, no clubbing, no cyanosis. Neurological: The patient is alert, she is oriented x3. No focal deficits, no hearing problems today. LABORATORY DATA: WBC 14, hemoglobin 10.3, hematocrit 32.8, platelets 270,000. Sodium 143, potassium 4.3, chloride 107, bicarbonate 25, BUN 10, creatinine 0.8, glucose 127, calcium 8.8. AST 111, ALT 64, alkaline phosphatase 837. CK 3080. ASSESSMENT AND PLAN: 1. Heroin overdose. We will continue to monitor. She seems to be stable. No signs of withdrawal. 2. Aspiration pneumonia. I have stopped the Zyvox and Zosyn. X-ray looks better. Continue with p.o. treatment with levofloxacin. 3. Rhabdomyolysis. This is getting better. CK is trending down. Continue with IV fluids. 4. Sensorineural hearing loss, likely due to heroin. This is better, as per the patient is resolved, no ringing sensation. 5. Acute kidney injury, resolved. 6. Sepsis, likely due to pneumonia. WBC is 14 today and she is not having fever or chills. 7. Nausea and vomiting, resolved. 8. Hypotension, stable. Her blood pressure has been better. 9. Disposition. Overall, this patient is doing much better. I will transfer this patient to the medical floor. I will continue with steroids p.o. and antibiotics p.o. as well, continue with IV fluids. Hopefully I will be able to discharge this patient in 1 or 2 days. cc: Ten Ayala MD
[2019-07-09 05:42] LABS: HEMATOCRIT 32.3 % (37.0-47.0); HEMOGLOBIN 10.4 g/dL (12.0-16.0); IMM GRAN# 0.02 X1000 (0.0-0.04); IMM GRAN% 0.2 % (0.0-0.5); LYMPH# 1.98 X1000 (1.2-3.4); LYMPH% 21.7 % (20.5-51.1); MCH 30.2 PG (27-31); MCHC 32.2 g/dL (33-37); MCV 93.9 FL (81-99); MONO# 0.59 X1000 (0.11-0.59); MONO% 6.5 % (1.7-9.3); MPV 9.8 FL (7.4-10.4); NEUT# 6.53 X1000 (1.4-6.5); NEUT% 71.6 % (42.2-75.2); PLT 261 X1000 (130-400); RBC 3.44 XMIL (4.2-5.4); RDW 12.4 % (11.5-14.5); WBC 9.12 X1000 (4.8-10.8)
[2019-07-09 06:02] LABS: AGAP 10; ALB/GLOB RATIO 1.7; ALBUMIN 3.6 g/dL (3.5-5.0); ALKALINE PHOSPHATASE 34 U/L (32-104); BUN 9 mg/dL (8-22); CALCIUM 8.4 mg/dL (8.8-10.2); CHLORIDE 106 mmol/L (98-107); COSMO 280; CREATININE 0.8 mg/dL (0.5-0.9); ESTIMATED GFR > 60; GLUCOSE 107 mg/dL (70-104); GOT 71 U/L (10-30); GPT 59 U/L (10-36); POTASSIUM 4.4 mmol/L (3.5-5.1); SODIUM 141 mmol/L (136-145); TCO2 25 mmol/L (25-35); TOTAL PROTEIN 5.7 g/dL (6.3-8.3)
[2019-07-09 06:04] LABS: CK PROFILE 1342 U/L (24-173)
[2019-07-09 06:40] LABS: CK INDEX 0.6 (0.0-2.5); CK-MB 7.49 ng/mL (0.0-5.0)
[2019-07-09 08:12] VITALS: BP 106/63
[2019-07-09] MEDS: NS 1,000 ML IV SCH (08:33)
[2019-07-09] MEDS: LEVAQUIN PO SCH (08:34)
[2019-07-09] MEDS: PREDNISONE PO SCH (08:34)
[2019-07-09 12:16] LABS: HEPATITIS PROFILE ACUTE SEE COMMENTS
--- NOTE | 2019-07-09 13:59 | PROGRESS NOTE ---
DATE: 07/09/2019 This patient has been discharged already and she is already at home. I just received the hepatitis profile and it shows that the hepatitis C is reactive. I called the patient's mother, and I talked to the mother and also I talked to the patient. I told them about the results and I gave her information about one of our gastroenterologists, Dr. Woodard and also I gave them the phone number so they can call tomorrow at [phone]. The patient states that she was doing good, no issues at home. cc: Ten Ayala MD
--- NOTE | 2019-07-09 15:52 | DISCHARGE SUMMARY ---
ADMISSION DATE: 07/06/2019 DISCHARGE DATE: 07/09/2019 DIAGNOSES: 1. Heroin overdose. 2. Aspiration pneumonia. 3. Rhabdomyolysis, improving. 4. Sensorineural hearing loss likely due to heroin, resolved per the patient. 5. Acute kidney injury resolved. 6. Sepsis likely due to pneumonia resolved. 7. Nausea and vomiting resolved. 8. Hypotension resolved. CONSULTANTS: Dr. Manuel Bryant ENT. DIAGNOSTICS: 1. CT of the head revealed no hemorrhage. Negative brain CT without contrast. 2. 07/06/2019 chest x-ray, small left basilar infiltrate. 3. 07/08/2019 chest x-ray, apparent mild infrahilar infiltrate on the left. No dense consolidation or pneumothorax seen. 4. Microbiology. Blood cultures x2 revealed no growth after 48 hours. HOSPITAL COURSE: Ms Herman presented to the emergency room via EMS after being found unresponsive by her family. She had been seen approximately 6 hours prior and was in her normal state of health. It was found that she had used heroin. On arrival to the emergency room the patient could not hear. This did improve somewhat while in the emergency room. Due to sensorineural hearing loss secondary to heroin use we spoke with Dr. Manuel Bryant, ENT. He felt that the patient did not need to be transferred to a tertiary care facility that she could be cared for at [facility] just to continue b.i.d. Solu-Medrol that we had instituted. We did consult him to follow. She did have some hypotension on 1st arrival, after IV hydration pressures normalized and has stayed within normal limits. Initial total CPK was 719, it peaked at 6014 on the afternoon of the . It is decreased and today it is 1342. Her admission creatinine was 1.3. After hydration her creatinine has remained 0.8. The patient is better. She is back to her baseline per herself and her family, antibiotics and steroids have been changed over to oral for the last 24 hours. Thankfully today she is ready for discharge. DISCHARGE PHYSICAL EXAM: Vital Signs: Blood pressure is 106/63 with heart rate 72, respirations 16, temperature 97.8 degrees oral with room air saturations 98%. Cardiovascular: Regular rate and rhythm. S1, S2 appreciated. Calves are nontender bilateral with peripheral pulses palpable x4 extremities. Pulmonary: Breath sounds are clear with no increased work of breathing noted. Chest rises and falls symmetric respiration. Gastrointestinal: Abdomen soft, nontender, nondistended with bowel sounds in all 4 quadrants. Neurologic: She is alert, oriented x3 with cranial nerves 2-12 grossly intact. DISCHARGE MEDICATIONS: 1. Levaquin 500 mg p.o. daily for 3 days. 2. Prednisone 20 mg p.o. daily for 12 days FOLLOWUP: 1. Dr. Manuel Bryant in 2 weeks. They need to call the office Wednesday for an appointment. 2. Her primary care physician as needed. It was discussed with the patient the importance of stopping using heroin or any other illicit drugs. We did discuss that she could have from this use had her family not found her to which she voiced understanding. The patient states she has been in rehab many times in the past in fact she has just recently been in rehab. I did encourage her to speak with them maybe getting rehab again as well as following up with Narcotics Anonymous to which she stated that she was not interested in at this time. She was instructed to call to be seen sooner or return to the emergency room for any syncope, dizziness, chest pain, palpitations, nausea, vomiting, diarrhea, constipation, black or bloody stools or vomitus, any shortness of breath, cough, temperature greater than 101 any chills, any change in hearing, any recurring ringing in her ears. She was instructed to call Dr. Bryant office or return to the emergency room at the time that this recurs or for any other questions or concerns that she may have. She being discharged home in stable condition with her parents. TIME SPENT: Greater than 30 minutes. Dictated by JAYSHREE Knutson for Ten Ayala MD cc: JAYSHREE Knutson MD
[2019-07-12 12:18] LABS: HCV BY PCR SEE COMMENTS
== END 2019-07-09 11:52 | disposition home or self-care (01) | DRG 917 ==
LOC: SUPCPDRO → ED 07:18 → 2N 14:47 → 1N 07-08 09:38
PROVIDERS: ATTEND Internal Medicine